=== PATIENT | female | born 1975 | race American Indian/Alaskan Native ===

== ENCOUNTER 2021-07-15 06:56 | Emergency (ER) | payer SELFPAY ==
--- NOTE | 2021-07-15 07:27 | Emergency Department Report ---
ED CPR HPI - General Stated Complaint: CARDIAC ARREST Time Seen by Provider: 07/15/21 07:11 Source: family, EMS - History of Present Illness Initial Comments: Patient is 46 years old female with history of hypertension. Patient brought to the emergency room via EMS from her friend house in a full cardiac arrest, CPR in progress. Patient daughter who accompanied the EMS stated that she left home yesterday around 10 PM to her friend house and she slept over. She received a call this morning from her mother friend stating that they found her unresponsive, nonbreathing and pale. Daughter stated that the last time saw her normal was 12 AM. EMS reported that patient found unresponsive, apneic and pulseless. Patient found to be in asystole. ACLS protocol immediately initiated by EMS and patient intubated with a 7 O ET tube. Patient received 3 mg of epinephrine via ET tube. Upon arrival to the ER ET tube confirmed by me with good breath sound on both side. I immediately placed a left EJ access in patient received epinephrine, bicarb and calcium chloride. ACLS protocol continued in the ER however patient remained in asystole. Patient pronounced at 6:56 AM. Patient daughter available and informed about the . MD Complaint: found unresponsive -: unknown Place: home Initial Findings in the Field: no pulse, systole Treatments Prior to Arrival: intubation, chest compressions, defribrillated shocks # (1), epinephrine mgs # (3), sodium bicarbonate ED Review of Systems ROS: Stated complaint: CARDIAC ARREST Other details as noted in HPI Comment: Unobtainable due to pts medical conditions ED Physical Exam - General General appearance: other (CPR in progress) - Eye Pupils: Present: mydriatic, other (Pupils are 4 mm fixed and dilated.) - Neck Neck exam: Present: normal inspection - Respiratory Respiratory exam: Present: other (No spontaneous breathing.) - Cardiovascular Cardiovascular Exam: Present: other (No spontaneous heart tone.) - Neurological Exam Neurological exam: Present: other (Intubated. CPR in progress.) - Skin Skin exam: Present: warm, dry, intact - EJ/Peripheral Line Neck L Time Out Performed: Yes Indications: nurses unable to establis Skin Cleansed in Sterile Fashion: Yes Size: 18 Dressing Placed: Tegaderm, tape Patient Tolerated Procedure: well, no complications Critical Care Time: Yes Critical care time in (mins) excluding proc time.: 35 Critical care attestation.: If time is entered above; I have spent that time in minutes in the direct care of this critically ill patient, excluding procedure time. ED Disposition Clinical Impression: Cardiopulmonary arrest Disposition: 20 Is pt being admited?: No Condition: Stable
== END 2021-07-15 11:53 ==
LOC: ED 06:56
DX: I46.9 Cardiac arrest, cause unspecified (principal)
CPT/HCPCS: 92950; 99285